=== PATIENT | female | born 1955 | race Caucasian/White ===

== ENCOUNTER 2017-09-01 20:20 | Emergency (ER) | END 2017-09-01 23:56 | disposition home or self-care (01) | DX: K29.00 Acute gastritis without bleeding (principal); I10 Essential (primary) hypertension; R07.89 Other chest pain | CPT/HCPCS: 36415; 71010; 80053; 83690; 84484; 85025; 93005; 96374; 96375; J1885; J2405; J7030; Z7502; Z7610 ==